=== PATIENT | male | born 1975 | race Caucasian/White ===

== ENCOUNTER 2024-07-30 18:40 | Inpatient (IN) | payer OTHER ==
[2024-07-30 18:45] LABS: Glucose,Whole Blood 600 mg/dL (70-110)
[2024-07-30 18:59] LABS: Glucose,Whole Blood 551 mg/dL (70-110)
[2024-07-30] MEDS: SODIUM CHLORIDE 0.9% 1,000 ML IV ONE (19:21)
--- NOTE | 2024-07-30 19:26 | ED ---
General Adult HPI - General Chief complaint: Recheck/Abnormal Lab/Rx Stated complaint: sugar over 500 Time Seen by Provider: 07/30/24 18:43 Source: patient, RN notes reviewed, old records reviewed Mode of arrival: ambulatory Limitations: no limitations - History of Present Illness Initial comments: 49-year-old male presenting for evaluation of elevated sugar. Patient does not have a diagnosis of diabetes. He felt that his sugar might be high and he bought a glucometer and had had several high readings today. He does report a 2-week history of increased thirst, and increased urination. He is felt somewhat fatigued. - Related Data Allergies Allergy/AdvReac Type Severity Reaction Status Date / Time No Known Allergies Allergy Verified 07/30/24 18:47 Review of Systems ROS Statement: Those systems with pertinent positive or pertinent negative responses have been documented in the HPI. ROS Other: All systems not noted in ROS Statement are negative. Past Medical History Additional Past Medical History / Comment(s): Pre-diabetic History of Any Multi-Drug Resistant Organisms: None Reported Past Surgical History: Ear Surgery Past Psychological History: No Psychological Hx Reported Smoking Status: Current every day smoker Past Alcohol Use History: None Reported Past Drug Use History: None Reported General Exam Limitations: no limitations General appearance: alert, in no apparent distress Head exam: Present: atraumatic, normocephalic Eye exam: Present: normal appearance, PERRL ENT exam: Present: mucous membranes dry Neck exam: Present: normal inspection. Absent: tenderness, meningismus Respiratory exam: Present: normal lung sounds bilaterally. Absent: respiratory distress, wheezes Cardiovascular Exam: Present: regular rate, normal rhythm GI/Abdominal exam: Present: soft. Absent: distended, guarding Neurological exam: Present: alert, oriented X3, CN II-XII intact. Absent: motor sensory deficit Psychiatric exam: Present: normal affect, normal mood Course Vital Signs 07/30/24 18:42 Temperature 98.5 F Pulse Rate 102 H Respiratory 18 Rate Blood Pressure 129/74 O2 Sat by Pulse 95 Oximetry Medical Decision Making - Medical Decision Making Was pt. sent in by a medical professional or institution (, PA, BUILDING DRAFTING OFFICER, urgent care, hospital, or [facility]...) When possible be specific @ -No Did you speak to anyone other than the patient for history (EMS, parent, family, police, friend...)? What history was obtained from this source @ -No Did you review nursing and triage notes (agree or disagree)? Why? @ -I reviewed and agree with nursing and triage notes Were old charts reviewed (outside hosp., previous admission, EMS record, old EKG, old radiological studies, urgent care reports/EKG's, [facility] records)? Report findings @ -No old charts were reviewed Differential: New onset diabetes, dehydration, diabetic ketoacidosis EKG interpreted by me (3pts min.). @ -[Sinus rhythm rate of 91 AL interval 179, QRS duration 101, QTc 388 X-rays interpreted by me (1pt min.). @ -None done CT interpreted by me (1pt min.). @ -None done U/S interpreted by me (1pt. min.). @ -None done What testing was considered but not performed or refused? (CT, X-rays, U/S, labs)? Why? @ -None What meds were considered but not given or refused? Why? @ -None Did you discuss the management of the patient with other professionals (professionals i.e. , PA, BUILDING DRAFTING OFFICER, lab, RT, psych nurse, manager social responsibility, tightening machine operator, teacher, assistant chief nursing officer, cyanide case hardener)? Give summary @ -[Case discussed with [facility], will admit. Dr. Min Was smoking cessation discussed for >3mins.? @ -No Was critical care preformed (if so, how long)? @ -Yes, 35 minutes Were there social determinants of health that impacted care today? How? (Homelessness, low income, unemployed, alcoholism, drug addiction, transportation, low edu. Level, literacy, decrease access to med. care, longterm, rehab)? @ -No Was there de-escalation of care discussed even if they declined (Discuss DNR or withdrawal of care, Hospice)? DNR status @ -No What co-morbidities impacted this encounter? (DM, HTN, Smoking, COPD, CAD, Cancer, CVA, ARF, Chemo, Hep., AIDS, mental health diagnosis, sleep apnea, morbid obesity)? @ -None Was patient admitted / discharged? Hospital course, mention meds given and route, prescriptions, significant lab abnormalities, going to OR and other pertinent info. @ -49-year-old male presenting with polydipsia, polyuria, elevated blood sugar. Patient has no prior diagnosis of diabetes. His blood sugar is 600. He is in DKA with an anion gap metabolic acidosis and ketones in the urine. Patient given IV fluid and started on insulin drip. Admitted for new onset diabetes with DKA. Undiagnosed new problem with uncertain prognosis? @ -No Drug Therapy requiring intensive monitoring for toxicity (Heparin, Nitro, Insulin, Cardizem)? @ -No Were any procedures done? @ -No Diagnosis/symptom? @ -New onset diabetes, DKA Acute, or Chronic, or Acute on Chronic? @ -Acute Uncomplicated (without systemic symptoms) or Complicated (systemic symptoms)? @ -[Complicated Side effects of treatment? @ -No Exacerbation, Progression, or Severe Exacerbation? @ -No Poses a threat to life or bodily function? How? (Chest pain, USA, SD, pneumonia, PE, COPD, DKA, ARF, appy, cholecystitis, CVA, Diverticulitis, Homicidal, Suicidal, threat to staff... and all critical care pts) @ -Yes, DKA - Lab Data Result diagrams: 07/30/24 19:08 07/30/24 19:08 Lab Results 07/30/24 07/30/24 07/30/24 Range/Units 18:43 18:58 19:08 WBC 5.83 (4.50-10.00) 10*3/uL RBC 4.37 L (4.40-5.60) 10*6/uL Hgb 15.4 (13.0-17.0) g/dL Hct 37.6 L (39.6-50.0) % MCV 86.0 (80.0-97.0) fL MCH 35.2 H (27.0-32.0) pg MCHC 41.0 H (32.0-37.0) g/dL Plt Count 229 (140-440) 10*3/uL MPV 10.4 (9.5-12.2) fL Immature Gran % (Auto) 0.9 % Neutrophils % 57.1 % Lymphocytes % 31.6 % Monocytes % 6.3 % Eosinophils % 2.7 % Basophils % 1.4 % Immature Gran # 0.05 H (0.00-0.04) 10*3/uL Neutrophils # 3.33 (1.80-7.70) 10*3/uL Lymphocytes # 1.84 (0.90-5.00) 10*3/uL Monocytes # 0.37 (0.20-1.00) 10*3/uL Eosinophils # 0.16 (0.04-0.35) 10*3/uL Basophils # 0.08 (0.00-0.10) 10*3/uL VBG pH (7.31-7.41) VBG pCO2 (37-51) mmHg VBG HCO3 (24-28) mmol/L Sodium (137-145) mmol/L Potassium (3.5-5.1) mmol/L Chloride (98-107) mmol/L Carbon Dioxide (22-30) mmol/L Anion Gap mmol/L BUN (9-20) mg/dL Creatinine (0.66-1.25) mg/dL Est GFR (CKD-EPI)AfAm (>60 ml/min/1.73 sqM) Est GFR (CKD-EPI)NonAf (>60 ml/min/1.73 sqM) Glucose (74-99) mg/dL POC Glucose (mg/dL) 600 H* 551 H* (70-110) mg/dL POC Glu Piece Dyer ID Altimore Gianna Altimore Gianna Plasma Lactic Acid Russell (0.7-2.0) mmol/L Calcium (8.4-10.2) mg/dL Total Bilirubin (0.2-1.3) mg/dL AST (17-59) U/L ALT (4-49) U/L Alkaline Phosphatase (38-126) U/L Total Protein (6.3-8.2) g/dL Albumin (3.5-5.0) g/dL Urine Color Urine Appearance (Clear) Urine pH (5.0-8.0) Ur Specific [place] (1.001-1.035) Urine Protein (Negative) Urine Glucose (UA) (Negative) Urine Ketones (Negative) Urine Blood (Negative) Urine Nitrite (Negative) Urine Bilirubin (Negative) Urine Urobilinogen (<2.0) mg/dL Ur Leukocyte Esterase (Negative) Urine RBC (0-5) /hpf Urine WBC (0-5) /hpf Ur Squamous Epith Cells (0-4) /hpf Acetone, Qual (Negative) 07/30/24 07/30/24 07/30/24 Range/Units 19:08 19:08 19:08 WBC (4.50-10.00) 10*3/uL RBC (4.40-5.60) 10*6/uL Hgb (13.0-17.0) g/dL Hct (39.6-50.0) % MCV (80.0-97.0) fL MCH (27.0-32.0) pg MCHC (32.0-37.0) g/dL Plt Count (140-440) 10*3/uL MPV (9.5-12.2) fL Immature Gran % (Auto) % Neutrophils % % Lymphocytes % % Monocytes % % Eosinophils % % Basophils % % Immature Gran # (0.00-0.04) 10*3/uL Neutrophils # (1.80-7.70) 10*3/uL Lymphocytes # (0.90-5.00) 10*3/uL Monocytes # (0.20-1.00) 10*3/uL Eosinophils # (0.04-0.35) 10*3/uL Basophils # (0.00-0.10) 10*3/uL VBG pH (7.31-7.41) VBG pCO2 (37-51) mmHg VBG HCO3 (24-28) mmol/L Sodium 126 L (137-145) mmol/L Potassium 4.7 (3.5-5.1) mmol/L Chloride 93 L (98-107) mmol/L Carbon Dioxide 13 L (22-30) mmol/L Anion Gap 20 mmol/L BUN 18 (9-20) mg/dL Creatinine 0.62 L (0.66-1.25) mg/dL Est GFR (CKD-EPI)AfAm >90 (>60 ml/min/1.73 sqM) Est GFR (CKD-EPI)NonAf >90 (>60 ml/min/1.73 sqM) Glucose 526 H* (74-99) mg/dL POC Glucose (mg/dL) (70-110) mg/dL POC Glu Piece Dyer ID Plasma Lactic Acid Russell 1.1 (0.7-2.0) mmol/L Calcium 9.4 (8.4-10.2) mg/dL Total Bilirubin 1.1 (0.2-1.3) mg/dL AST 28 (17-59) U/L ALT 31 (4-49) U/L Alkaline Phosphatase 81 (38-126) U/L Total Protein 7.6 (6.3-8.2) g/dL Albumin 4.3 (3.5-5.0) g/dL Urine Color Colorless Urine Appearance Clear (Clear) Urine pH 5.0 (5.0-8.0) Ur Specific [place] 1.030 (1.001-1.035) Urine Protein Negative (Negative) Urine Glucose (UA) 4+ H (Negative) Urine Ketones 2+ H (Negative) Urine Blood Trace H (Negative) Urine Nitrite Negative (Negative) Urine Bilirubin Negative (Negative) Urine Urobilinogen <2.0 (<2.0) mg/dL Ur Leukocyte Esterase Negative (Negative) Urine RBC 1 (0-5) /hpf Urine WBC <1 (0-5) /hpf Ur Squamous Epith Cells <1 (0-4) /hpf Acetone, Qual Negative (Negative) 07/30/24 Range/Units 19:08 WBC (4.50-10.00) 10*3/uL RBC (4.40-5.60) 10*6/uL Hgb (13.0-17.0) g/dL Hct (39.6-50.0) % MCV (80.0-97.0) fL MCH (27.0-32.0) pg MCHC (32.0-37.0) g/dL Plt Count (140-440) 10*3/uL MPV (9.5-12.2) fL Immature Gran % (Auto) % Neutrophils % % Lymphocytes % % Monocytes % % Eosinophils % % Basophils % % Immature Gran # (0.00-0.04) 10*3/uL Neutrophils # (1.80-7.70) 10*3/uL Lymphocytes # (0.90-5.00) 10*3/uL Monocytes # (0.20-1.00) 10*3/uL Eosinophils # (0.04-0.35) 10*3/uL Basophils # (0.00-0.10) 10*3/uL VBG pH 7.39 (7.31-7.41) VBG pCO2 33 L (37-51) mmHg VBG HCO3 20 L (24-28) mmol/L Sodium (137-145) mmol/L Potassium (3.5-5.1) mmol/L Chloride (98-107) mmol/L Carbon Dioxide (22-30) mmol/L Anion Gap mmol/L BUN (9-20) mg/dL Creatinine (0.66-1.25) mg/dL Est GFR (CKD-EPI)AfAm (>60 ml/min/1.73 sqM) Est GFR (CKD-EPI)NonAf (>60 ml/min/1.73 sqM) Glucose (74-99) mg/dL POC Glucose (mg/dL) (70-110) mg/dL POC Glu Piece Dyer ID Plasma Lactic Acid Russell (0.7-2.0) mmol/L Calcium (8.4-10.2) mg/dL Total Bilirubin (0.2-1.3) mg/dL AST (17-59) U/L ALT (4-49) U/L Alkaline Phosphatase (38-126) U/L Total Protein (6.3-8.2) g/dL Albumin (3.5-5.0) g/dL Urine Color Urine Appearance (Clear) Urine pH (5.0-8.0) Ur Specific [place] (1.001-1.035) Urine Protein (Negative) Urine Glucose (UA) (Negative) Urine Ketones (Negative) Urine Blood (Negative) Urine Nitrite (Negative) Urine Bilirubin (Negative) Urine Urobilinogen (<2.0) mg/dL Ur Leukocyte Esterase (Negative) Urine RBC (0-5) /hpf Urine WBC (0-5) /hpf Ur Squamous Epith Cells (0-4) /hpf Acetone, Qual (Negative) Critical Care Time Critical Care Time: Yes Total Critical Care Time: 35 Disposition Clinical Impression: Diabetes mellitus, new onset, DKA (diabetic ketoacidosis) Disposition: ADMITTED IP TO THIS [facility] Condition: Stable Is patient prescribed a controlled substance at d/c from ED?: No Referrals: None,Stated [Primary Care Provider] - 1-2 days Time of Disposition: 20:32
[2024-07-30] MEDS ORDERED: SODIUM CHLORIDE 0.9% 1,000 ML IV SCH (19:30)
[2024-07-30] MEDS: SODIUM CHLORIDE 0.9% 2,000 ML IV ONE (19:45)
[2024-07-30 19:49] LABS: Appearance,Urine Clear (Clear); Bilirubin,Urine Negative (Negative); Blood,Urine Trace (Negative); Color,Urine Colorless; Glucose,Urine (UA) 4+ (Negative); Leukocyte Esterase,Urine Negative (Negative); Nitrite,Urine Negative (Negative); Protein,Urine Negative (Negative); RBC,Urine 1 /hpf (0-5); Squamous Epithelial Cell,Urine <1 /hpf (0-4); Urobilinogen,Urine <2.0 mg/dL (<2.0); VBG PH 7.39 (7.31-7.41); WBC,Urine <1 /hpf (0-5)
[2024-07-30 20:02] LABS: ALT 31 U/L (4-49); AST 28 U/L (17-59); African American GFR (CKD) >90 (>60 ml/min/1.73 sqM); Albumin 4.3 g/dL (3.5-5.0); Alkaline Phosphatase 81 U/L (38-126); Anion Gap 20 mmol/L; Blood Urea Nitrogen 18 mg/dL (9-20); Calcium 9.4 mg/dL (8.4-10.2); Carbon Dioxide 13 mmol/L (22-30); Chloride 93 mmol/L (98-107); Non-African American GFR(CKD) >90 (>60 ml/min/1.73 sqM); Potassium 4.7 mmol/L (3.5-5.1); Sodium 126 mmol/L (137-145); Total Bilirubin 1.1 mg/dL (0.2-1.3); Total Protein 7.6 g/dL (6.3-8.2)
[2024-07-30 20:03] LABS: Ketones,Urine 2+ (Negative)
[2024-07-30 20:05] LABS: Basophils # (A) 0.08 10*3/uL (0.00-0.10); Basophils % (A) 1.4 %; Eosinophils # (A) 0.16 10*3/uL (0.04-0.35); Eosinophils % (A) 2.7 %; HCT 37.6 % (39.6-50.0); HGB 15.4 g/dL (13.0-17.0); Lymphocytes # (A) 1.84 10*3/uL (0.90-5.00); Lymphocytes % (A) 31.6 %; MCH 35.2 pg (27.0-32.0); Mean Platelet Volume 10.4 fL (9.5-12.2); Monocytes # (A) 0.37 10*3/uL (0.20-1.00); Monocytes % (A) 6.3 %; Neutrophils # (A) 3.33 10*3/uL (1.80-7.70); Neutrophils % (A) 57.1 %; Platelet Count 229 10*3/uL (140-440); RBC 4.37 10*6/uL (4.40-5.60); RDW 12.6 % (11.5-14.5); WBC 5.83 10*3/uL (4.50-10.00)
[2024-07-30 20:06] LABS: Glucose 526 mg/dL (74-99)
[2024-07-30 20:32] LABS: Glucose,Whole Blood 470 mg/dL (70-110)
[2024-07-30] MEDS: SODIUM CHLORIDE 0.9% 1,000 ML IV SCH (21:15)
[2024-07-30] MEDS: INSULIN REGULAR 100 UNIT in SODIUM CHLORIDE 0.9% 100 ML IV SCH (21:16)
[2024-07-30 21:20] LABS: Glucose,Whole Blood 448 mg/dL (70-110)
[2024-07-30 23:09] LABS: Glucose,Whole Blood 377 mg/dL (70-110)
[2024-07-30 23:54] LABS: Glucose,Whole Blood 358 mg/dL (70-110)
[2024-07-31 00:53] LABS: African American GFR (CKD) >90 (>60 ml/min/1.73 sqM); Anion Gap 13 mmol/L; Blood Urea Nitrogen 16 mg/dL (9-20); Carbon Dioxide 16 mmol/L (22-30); Chloride 101 mmol/L (98-107); Glucose 315 mg/dL (74-99); Non-African American GFR(CKD) >90 (>60 ml/min/1.73 sqM); Sodium 130 mmol/L (137-145)
[2024-07-31 01:04] LABS: Glucose,Whole Blood 271 mg/dL (70-110)
[2024-07-31 02:15] LABS: Glucose,Whole Blood 208 mg/dL (70-110)
[2024-07-31 03:07] LABS: Glucose,Whole Blood 166 mg/dL (70-110)
[2024-07-31 04:02] LABS: Glucose,Whole Blood 152 mg/dL (70-110)
[2024-07-31 04:53] LABS: Glucose,Whole Blood 132 mg/dL (70-110)
[2024-07-31 06:01] LABS: Glucose,Whole Blood 133 mg/dL (70-110)
[2024-07-31 06:47] LABS: African American GFR (CKD) >90 (>60 ml/min/1.73 sqM); Anion Gap 10 mmol/L; Blood Urea Nitrogen 15 mg/dL (9-20); Carbon Dioxide 19 mmol/L (22-30); Chloride 103 mmol/L (98-107); Glucose 105 mg/dL (74-99); Non-African American GFR(CKD) >90 (>60 ml/min/1.73 sqM); Sodium 132 mmol/L (137-145)
[2024-07-31 06:48] LABS: Potassium 3.6 mmol/L (3.5-5.1)
[2024-07-31 06:55] LABS: Glucose,Whole Blood 124 mg/dL (70-110)
[2024-07-31 08:16] LABS: Glucose,Whole Blood 128 mg/dL (70-110)
[2024-07-31] MEDS ORDERED: DEXTROSE 50% SYRINGE 50 ML IVP PRN ×2 (08:33)
[2024-07-31 09:09] LABS: Glucose,Whole Blood 172 mg/dL (70-110)
[2024-07-31 09:31] LABS: African American GFR (CKD) >90 (>60 ml/min/1.73 sqM); Anion Gap 9 mmol/L; Blood Urea Nitrogen 13 mg/dL (9-20); Calcium 7.8 mg/dL (8.4-10.2); Carbon Dioxide 19 mmol/L (22-30); Chloride 104 mmol/L (98-107); Glucose 130 mg/dL (74-99); Non-African American GFR(CKD) >90 (>60 ml/min/1.73 sqM); Sodium 132 mmol/L (137-145)
[2024-07-31 09:38] LABS: Potassium 3.5 mmol/L (3.5-5.1)
[2024-07-31] MEDS: POTASSIUM CHLORIDE ER 20 MEQ TAB.ER PO STA (10:03)
[2024-07-31] MEDS: INSULIN GLARGINE (LANTUS) 100 UNIT/ML SYR SQ SCH ×3 (10:03→21:53)
[2024-07-31 10:04] LABS: Glucose,Whole Blood 299 mg/dL (70-110)
[2024-07-31] MEDS: D5-0.45% NACL WITH KCL 20MEQ/L 1,000 ML IV SCH (10:25)
[2024-07-31 11:20] LABS: Glucose,Whole Blood 342 mg/dL (70-110)
[2024-07-31 11:52] VITALS: BMI 38.0
[2024-07-31 12:29] LABS: Glucose,Whole Blood 355 mg/dL (70-110)
[2024-07-31] MEDS: INSULIN LISPRO (HumaLOG) 100 UNIT/ML 10 mL VL SQ SCH (12:42)
[2024-07-31] MEDS ORDERED: Potassium Replacement Protocol 1 EACH MISC MISCELLANE PRN (14:50)
--- NOTE | 2024-07-31 15:12 | P.HPIM ---
History of Present Illness H&P Date: 07/31/24 History of present illness; Patient has 49-year-old male with no known medical history who presents for hyperglycemia. He has no known history of diabetes. He does report a 2-week history of increased thirst, and increased urination. He is felt somewhat fatigued. He felt that his sugar might be high and he bought a glucometer and had had several high readings yesterday, including readings up to 425. He has no other complaints at this time. Spoke with the ER physician, patient admission was accepted by internal medicine service for treatment. REVIEW OF SYSTEMS: Pertinent positives and negatives noted in HPI. PHYSICAL EXAMINATION: Vitals reviewed GENERAL: Resting comfortably in bed. Obese. EYES: PERRL, no scleral injection or icterus. No vision loss HENT: Normocephalic, atraumatic, hearing grossly intact, moist mucous membranes NECK: No tracheal deviation, full range of motion. CARDIOVASCULAR: S1 and S2 present. No murmurs, rubs, or gallops. PULMONARY: Chest is clear to auscultation, no wheezing, rhonchi, or crackles. ABDOMEN: Soft, nontender, nondistended. No palpable organomegaly. MUSCULOSKELETAL: No apparent joint swelling and deformities. EXTREMITIES: No apparent cyanosis, clubbing. No pedal edema. NEUROLOGICAL: Alert and oriented. Gross neurological examination with no apparent focal deficits. SKIN: No apparent rashes. ER FINDINGS: Labs significant for hemoglobin 15.4, VBG 7.39, pCO2 33. Sodium 126, chloride 93, bicarb 13, creatinine 0.62, glucose of 526 EKG independently interpreted showed sinus rhythm heart rate of 91, QTc 388, no ST segment elevation or depression seen, no T-wave inversions seen. Assessment and Plan: In summary, patient has 49-year-old male with no known medical history who presents for hyperglycemia. #[facility] #Uncontrolled hyperglycemia #Diabetes mellitus, type II #Pseudohyponatremia - Blood glucose elevated initial 526, bicarb low 13 Given 3L NS in ER Continue IV NS at 50 mL/h Potassium replacement per protocol Discontinue insulin GGT Begin daily Lantus 15 units Begin Accu-Cheks ACHS, monitor for hypoglycemia HbA1c pending Chronic Medical Conditions No known medical history DVT ppx: Subq Lovenox 40 meq daily Code status: Full code F: IV Normal saline E: Replete as needed N: Consistent carb diet A: Ambulatory Anticipated discharge place: Home Anticipated discharge time: Tomorrow Dr. Roland seen patient with resident, present during exam, and agreed with findings. Dictation was produced using [employer] dictation software. Please excuse any grammatical, word or spelling errors. Past Medical History Additional Past Medical History / Comment(s): Pre-diabetic History of Any Multi-Drug Resistant Organisms: None Reported Past Surgical History: Ear Surgery Past Psychological History: No Psychological Hx Reported Smoking Status: Current every day smoker Past Alcohol Use History: None Reported Past Drug Use History: None Reported Medications and Allergies Home Medications Medication Instructions Recorded Confirmed Type Multivitamins, Thera [Multivitamin 1 tab PO DAILY 07/31/24 07/31/24 History (formulary)] Vitamin D3/Vitamin K2 (Mk4) 1 tab PO DAILY 07/31/24 07/31/24 History [Vitamin K2 Plus D3 Tablet] Allergies Allergy/AdvReac Type Severity Reaction Status Date / Time No Known Allergies Allergy Verified 07/31/24 08:29 Physical Exam Vitals: Vital Signs Temp Pulse Pulse Resp BP BP Pulse Ox 07/31/24 08:05 97.5 F L 69 17 120/75 96 07/31/24 04:00 98.1 F 71 17 120/74 96 07/31/24 01:44 96 17 07/31/24 00:00 97.8 F 102 H 17 155/95 96 07/30/24 22:16 98.0 F 79 17 143/79 98 07/30/24 21:13 90 18 146/86 98 07/30/24 18:42 98.5 F 102 H 18 129/74 95 Intake and Output 07/30/24 07/31/24 07/31/24 22:59 06:59 14:59 Intake Total 121.151 4.542 Balance 121.151 4.542 Intake: Intake, IV Titration 121.151 4.542 Amount Insulin Regular 100 unit 121.151 4.542 In Sodium Chloride 0.9% 100 ml @ 0.1 UNITS/KG/HR 12.159 mls/hr IV .[id number] [facility] Rx#:[id number] Other: Voiding Method Toilet # Voids 2 Weight 120.383 kg 120.3 kg Results CBC & Chem 7: 07/30/24 19:08 07/31/24 08:43 Labs: Abnormal Lab Results - Last 24 Hours (Table) 07/30/24 07/30/24 07/30/24 Range/Units 18:43 18:58 19:08 RBC 4.37 L (4.40-5.60) 10*6/uL Hct 37.6 L (39.6-50.0) % MCH 35.2 H (27.0-32.0) pg MCHC 41.0 H (32.0-37.0) g/dL Immature Gran # 0.05 H (0.00-0.04) 10*3/uL VBG pCO2 (37-51) mmHg VBG HCO3 (24-28) mmol/L Sodium (137-145) mmol/L Chloride (98-107) mmol/L Carbon Dioxide (22-30) mmol/L Creatinine (0.66-1.25) mg/dL Glucose (74-99) mg/dL POC Glucose (mg/dL) 600 H* 551 H* (70-110) mg/dL Urine Glucose (UA) (Negative) Urine Ketones (Negative) Urine Blood (Negative) 07/30/24 07/30/24 07/30/24 Range/Units 19:08 19:08 19:08 RBC (4.40-5.60) 10*6/uL Hct (39.6-50.0) % MCH (27.0-32.0) pg MCHC (32.0-37.0) g/dL Immature Gran # (0.00-0.04) 10*3/uL VBG pCO2 33 L (37-51) mmHg VBG HCO3 20 L (24-28) mmol/L Sodium 126 L (137-145) mmol/L Chloride 93 L (98-107) mmol/L Carbon Dioxide 13 L (22-30) mmol/L Creatinine 0.62 L (0.66-1.25) mg/dL Glucose 526 H* (74-99) mg/dL POC Glucose (mg/dL) (70-110) mg/dL Urine Glucose (UA) 4+ H (Negative) Urine Ketones 2+ H (Negative) Urine Blood Trace H (Negative) 07/30/24 07/30/24 07/30/24 Range/Units 20:30 21:12 23:07 RBC (4.40-5.60) 10*6/uL Hct (39.6-50.0) % MCH (27.0-32.0) pg MCHC (32.0-37.0) g/dL Immature Gran # (0.00-0.04) 10*3/uL VBG pCO2 (37-51) mmHg VBG HCO3 (24-28) mmol/L Sodium (137-145) mmol/L Chloride (98-107) mmol/L Carbon Dioxide (22-30) mmol/L Creatinine (0.66-1.25) mg/dL Glucose (74-99) mg/dL POC Glucose (mg/dL) 470 H 448 H 377 H (70-110) mg/dL Urine Glucose (UA) (Negative) Urine Ketones (Negative) Urine Blood (Negative) 07/30/24 07/31/24 07/31/24 Range/Units 23:52 00:09 01:02 RBC (4.40-5.60) 10*6/uL Hct (39.6-50.0) % MCH (27.0-32.0) pg MCHC (32.0-37.0) g/dL Immature Gran # (0.00-0.04) 10*3/uL VBG pCO2 (37-51) mmHg VBG HCO3 (24-28) mmol/L Sodium 130 L (137-145) mmol/L Chloride (98-107) mmol/L Carbon Dioxide 16 L (22-30) mmol/L Creatinine 0.56 L (0.66-1.25) mg/dL Glucose 315 H (74-99) mg/dL POC Glucose (mg/dL) 358 H 271 H (70-110) mg/dL Urine Glucose (UA) (Negative) Urine Ketones (Negative) Urine Blood (Negative) 07/31/24 07/31/24 07/31/24 Range/Units 02:14 03:04 04:00 RBC (4.40-5.60) 10*6/uL Hct (39.6-50.0) % MCH (27.0-32.0) pg MCHC (32.0-37.0) g/dL Immature Gran # (0.00-0.04) 10*3/uL VBG pCO2 (37-51) mmHg VBG HCO3 (24-28) mmol/L Sodium (137-145) mmol/L Chloride (98-107) mmol/L Carbon Dioxide (22-30) mmol/L Creatinine (0.66-1.25) mg/dL Glucose (74-99) mg/dL POC Glucose (mg/dL) 208 H 166 H 152 H (70-110) mg/dL Urine Glucose (UA) (Negative) Urine Ketones (Negative) Urine Blood (Negative) 07/31/24 07/31/24 07/31/24 Range/Units 04:51 05:12 05:59 RBC (4.40-5.60) 10*6/uL Hct (39.6-50.0) % MCH (27.0-32.0) pg MCHC (32.0-37.0) g/dL Immature Gran # (0.00-0.04) 10*3/uL VBG pCO2 (37-51) mmHg VBG HCO3 (24-28) mmol/L Sodium 132 L (137-145) mmol/L Chloride (98-107) mmol/L Carbon Dioxide 19 L (22-30) mmol/L Creatinine 0.59 L (0.66-1.25) mg/dL Glucose 105 H (74-99) mg/dL POC Glucose (mg/dL) 132 H 133 H (70-110) mg/dL Urine Glucose (UA) (Negative) Urine Ketones (Negative) Urine Blood (Negative) 07/31/24 07/31/24 Range/Units 06:53 08:12 RBC (4.40-5.60) 10*6/uL Hct (39.6-50.0) % MCH (27.0-32.0) pg MCHC (32.0-37.0) g/dL Immature Gran # (0.00-0.04) 10*3/uL VBG pCO2 (37-51) mmHg VBG HCO3 (24-28) mmol/L Sodium (137-145) mmol/L Chloride (98-107) mmol/L Carbon Dioxide (22-30) mmol/L Creatinine (0.66-1.25) mg/dL Glucose (74-99) mg/dL POC Glucose (mg/dL) 124 H 128 H (70-110) mg/dL Urine Glucose (UA) (Negative) Urine Ketones (Negative) Urine Blood (Negative) Thrombosis Risk Factor Assmnt - Choose All That Apply Any of the Below Risk Factors Present?: Yes Each Factor Represents 1 point: Age 41-60 years Other Risk Factors: No Other congenital or acquired thrombophilia - If yes, enter type in comment: No Thrombosis Risk Factor Assessment Total Risk Factor Score: 1 Thrombosis Risk Factor Assessment Level: Low Risk
[2024-07-31 16:23] LABS: Glucose,Whole Blood 326 mg/dL (70-110)
[2024-07-31 16:40] LABS: African American GFR (CKD) >90 (>60 ml/min/1.73 sqM); Anion Gap 12 mmol/L; Blood Urea Nitrogen 11 mg/dL (9-20); Calcium 8.7 mg/dL (8.4-10.2); Carbon Dioxide 17 mmol/L (22-30); Chloride 102 mmol/L (98-107); Glucose 278 mg/dL (74-99); Magnesium 1.7 mg/dL (1.6-2.3); Non-African American GFR(CKD) >90 (>60 ml/min/1.73 sqM); Potassium 4.5 mmol/L (3.5-5.1); Sodium 131 mmol/L (137-145)
[2024-07-31 19:54] LABS: Glucose,Whole Blood 304 mg/dL (70-110)
[2024-08-01 06:06] LABS: Glucose,Whole Blood 369 mg/dL (70-110)
[2024-08-01 06:56] LABS: African American GFR (CKD) >90 (>60 ml/min/1.73 sqM); Anion Gap 15 mmol/L; Blood Urea Nitrogen 11 mg/dL (9-20); Calcium 8.7 mg/dL (8.4-10.2); Carbon Dioxide 16 mmol/L (22-30); Chloride 97 mmol/L (98-107); Glucose 346 mg/dL (74-99); Non-African American GFR(CKD) >90 (>60 ml/min/1.73 sqM); Potassium 4.6 mmol/L (3.5-5.1); Sodium 128 mmol/L (137-145)
[2024-08-01] MEDS: ENOXAPARIN 40 MG/0.4 ML SYRINGE SQ SCH (08:14)
[2024-08-01 12:09] LABS: Glucose,Whole Blood 409 mg/dL (70-110)
--- NOTE | 2024-08-01 14:58 | P.PN ---
Subjective Progress Note Date: 08/01/24 History of present illness; Patient has 49-year-old male with no known medical history who presents for hyp erglycemia. He has no known history of diabetes. He does report a 2-week history of increased thirst, and increased urination. He is felt somewhat fatigued. He felt that his sugar might be high and he bought a glucometer and had had several high readings yesterday, including readings up to 425. He has no other complaints at this time. 08/01/2024 Patient seen and examined at bedside. He continues to have elevated blood sugars. He is eager to be discharged. Continues to have polydipsia and polyuria. No nausea or vomiting. REVIEW OF SYSTEMS: Pertinent positives and negatives noted in HPI. PHYSICAL EXAMINATION: Vitals reviewed GENERAL: Resting comfortably in bed. Obese. EYES: PERRL, no scleral injection or icterus. No vision loss HENT: Normocephalic, atraumatic, hearing grossly intact, moist mucous membranes NECK: No tracheal deviation, full range of motion. CARDIOVASCULAR: S1 and S2 present. No murmurs, rubs, or gallops. PULMONARY: Chest is clear to auscultation, no wheezing, rhonchi, or crackles. ABDOMEN: Soft, nontender, nondistended. No palpable organomegaly. MUSCULOSKELETAL: No apparent joint swelling and deformities. EXTREMITIES: No apparent cyanosis, clubbing. No pedal edema. NEUROLOGICAL: Alert and oriented. Gross neurological examination with no apparen t focal deficits. SKIN: No apparent rashes. Objective FINDINGS: Labs significant for sodium 128, chloride 97, bicarb 16, creatinine 0.56, glucose ranging from 355-409 Assessment and Plan: In summary, patient has 49-year-old male with no known medical history who presents for hyperglycemia. #[facility] #Uncontrolled hyperglycemia #Diabetes mellitus, type II #Pseudohyponatremia - Blood glucose elevated initial 526, bicarb low 13 Given 3L NS in ER Potassium replacement per protocol Begin daily Lantus 18 units twice daily Begin preprandial lispro 8 units 3 times daily Begin Accu-Cheks ACHS, monitor for hypoglycemia HbA1c 12.6% Plan discharge when blood glucose <250 Chronic Medical Conditions No known medical history DVT ppx: Subq Lovenox 40 meq daily Code status: Full code F: P.o. E: Replete as needed N: Consistent carb diet A: Ambulatory Anticipated discharge place: Home Anticipated discharge time: Today or tomorrow Dr. Phelps seen patient with resident, present during exam, and agreed with findings. Dictation was produced using [employer]ever dictation software. Please excuse any grammatical, word or spelling errors. Objective - Vital Signs Vital signs: Vital Signs Temp 97.8 F 08/01/24 08:00 Pulse 81 08/01/24 08:00 Resp 18 08/01/24 08:00 BP 126/79 08/01/24 08:00 Pulse Ox 98 08/01/24 08:00 FiO2 Intake & Output 07/31/24 08/01/24 08/01/24 18:59 06:59 18:59 Intake Total 726.224 740 480 Balance 726.224 740 480 Weight 120.3 kg 120.4 kg Intake: Intake, IV Titration 6.224 Amount Insulin Regular 100 unit 6.224 In Sodium Chloride 0.9% 100 ml @ 0.1 UNITS/KG/HR 12.159 mls/hr IV .Q8H19M [facility] Rx#:[id number] Oral 720 740 480 Other: Voiding Method Toilet Toilet # Voids 1 - Labs CBC & Chem 7: 07/30/24 19:08 08/01/24 05:29 Labs: Abnormal Lab Results - Last 24 Hours (Table) 07/31/24 07/31/24 07/31/24 Range/Units 08:43 08:43 09:07 Sodium 132 L (137-145) mmol/L Chloride (98-107) mmol/L Carbon Dioxide 19 L (22-30) mmol/L Creatinine 0.56 L (0.66-1.25) mg/dL Glucose 130 H (74-99) mg/dL POC Glucose (mg/dL) 172 H (70-110) mg/dL Hemoglobin A1c 12.6 H (<=6.0) % Calcium 7.8 L (8.4-10.2) mg/dL 07/31/24 07/31/24 07/31/24 Range/Units 10:02 11:13 12:28 Sodium (137-145) mmol/L Chloride (98-107) mmol/L Carbon Dioxide (22-30) mmol/L Creatinine (0.66-1.25) mg/dL Glucose (74-99) mg/dL POC Glucose (mg/dL) 299 H 342 H 355 H (70-110) mg/dL Hemoglobin A1c (<=6.0) % Calcium (8.4-10.2) mg/dL 07/31/24 07/31/24 07/31/24 Range/Units 15:55 16:21 19:53 Sodium 131 L (137-145) mmol/L Chloride (98-107) mmol/L Carbon Dioxide 17 L (22-30) mmol/L Creatinine 0.56 L (0.66-1.25) mg/dL Glucose 278 H (74-99) mg/dL POC Glucose (mg/dL) 326 H 304 H (70-110) mg/dL Hemoglobin A1c (<=6.0) % Calcium (8.4-10.2) mg/dL 08/01/24 08/01/24 Range/Units 05:29 06:05 Sodium 128 L (137-145) mmol/L Chloride 97 L (98-107) mmol/L Carbon Dioxide 16 L (22-30) mmol/L Creatinine 0.56 L (0.66-1.25) mg/dL Glucose 346 H (74-99) mg/dL POC Glucose (mg/dL) 369 H (70-110) mg/dL Hemoglobin A1c (<=6.0) % Calcium (8.4-10.2) mg/dL
[2024-08-01 16:59] LABS: Glucose,Whole Blood 324 mg/dL (70-110)
[2024-08-01] MEDS: INSULIN LISPRO (HumaLOG) 100 UNIT/ML 10 mL VL SQ SCH (17:11)
[2024-08-01 20:09] LABS: Glucose,Whole Blood 325 mg/dL (70-110)
[2024-08-02 05:59] LABS: Glucose,Whole Blood 334 mg/dL (70-110)
[2024-08-02 08:05] LABS: African American GFR (CKD) >90 (>60 ml/min/1.73 sqM); Anion Gap 11 mmol/L; Blood Urea Nitrogen 11 mg/dL (9-20); Calcium 8.9 mg/dL (8.4-10.2); Carbon Dioxide 20 mmol/L (22-30); Chloride 100 mmol/L (98-107); Glucose 329 mg/dL (74-99); Non-African American GFR(CKD) >90 (>60 ml/min/1.73 sqM); Potassium 4.1 mmol/L (3.5-5.1); Sodium 131 mmol/L (137-145)
[2024-08-02 11:43] LABS: Glucose,Whole Blood 324 mg/dL (70-110)
[2024-08-02] MEDS: INSULIN LISPRO (HumaLOG) 100 UNIT/ML 10 mL VL SQ SCH (12:16)
[2024-08-02 14:53] LABS: Glucose,Whole Blood 409 mg/dL (70-110)
[2024-08-02 17:07] LABS: Glucose,Whole Blood 322 mg/dL (70-110)
[2024-08-02 20:14] LABS: Glucose,Whole Blood 297 mg/dL (70-110)
--- NOTE | 2024-08-02 22:00 | P.PN ---
Subjective Progress Note Date: 08/02/24 Patient has 49-year-old male with no known medical history who presents for hyperglycemia. He has no known history of diabetes. He does report a 2-week history of increased thirst, and increased urination. He is felt somewhat fatigued. He felt that his sugar might be high and he bought a glucometer and had had several high readings yesterday, including readings up to 425. He has no other complaints at this time. 08/01/2024 Patient seen and examined at bedside. He continues to have elevated blood sugars. He is eager to be discharged. Continues to have polydipsia and polyuria. No nausea or vomiting. 08/02/2024 Patient is awake alert and oriented x 3. No complaints of chest pain or shortne ss of breath. Able to ambulate in the room. However his blood sugar is still in the 400s. Preprandial dose increased to 12 units 3 times daily AC. Laboratory data showed sodium 131 potassium 4.1 chloride 100 bicarb is 20 BUN 11 and creatinine 0.58 and blood sugar 329. REVIEW OF SYSTEMS: Pertinent positives and negatives noted in HPI. PHYSICAL EXAMINATION: Vitals reviewed GENERAL: Resting comfortably in bed. Obese. EYES: PERRL, no scleral injection or icterus. No vision loss HENT: Normocephalic, atraumatic, hearing grossly intact, moist mucous membranes NECK: No tracheal deviation, full range of motion. CARDIOVASCULAR: S1 and S2 present. No murmurs, rubs, or gallops. PULMONARY: Chest is clear to auscultation, no wheezing, rhonchi, or crackles. ABDOMEN: Soft, nontender, nondistended. No palpable organomegaly. MUSCULOSKELETAL: No apparent joint swelling and deformities. EXTREMITIES: No apparent cyanosis, clubbing. No pedal edema. NEUROLOGICAL: Alert and oriented. Gross neurological examination with no apparent focal deficits. SKIN: No apparent rashes. Objective FINDINGS: Labs significant for sodium 128, chloride 97, bicarb 16, creatinine 0.56, glucose ranging from 355-409 Assessment and Plan: In summary, patient has 49-year-old male with no known medical history who presents for hyperglycemia. #HHS #Uncontrolled hyperglycemia #Diabetes mellitus, type II #Pseudohyponatremia - Blood glucose elevated initial 526, bicarb low 13 Given 3L NS in ER Potassium replacement per protocol Continue with Lantus 18 units twice daily Increase preprandial lispro 8 units 3 times daily to 12 units 3 times daily AC Continue Accu-Cheks ACHS, monitor for hypoglycemia HbA1c 12.6% Plan discharge when blood glucose <250 Chronic Medical Conditions No known medical history DVT ppx: Subq Lovenox 40 meq daily Code status: Full code F: P.o. E: Replete as needed N: Consistent carb diet A: Ambulatory Anticipated discharge place: Home Anticipated discharge time: Today or tomorrow Objective - Vital Signs Vital signs: Vital Signs Temp 97.7 F 08/02/24 15:11 Pulse 69 08/02/24 20:00 Resp 18 08/02/24 20:00 BP 117/69 08/02/24 20:00 Pulse Ox 98 08/02/24 20:00 FiO2 Intake & Output 08/02/24 08/02/24 08/03/24 06:59 18:59 06:59 Intake Total 10 1220 10 Balance 10 1220 10 Weight 119.3 kg Intake: IV 20 10 Invasive Line 1 20 10 Oral 10 1200 Other: Voiding Method Toilet Toilet Toilet # Voids 5 - Labs CBC & Chem 7: 07/30/24 19:08 08/02/24 06:05 Labs: Abnormal Lab Results - Last 24 Hours (Table) 08/02/24 08/02/24 08/02/24 Range/Units 05:56 06:05 11:40 Sodium 131 L (137-145) mmol/L Carbon Dioxide 20 L (22-30) mmol/L Creatinine 0.58 L (0.66-1.25) mg/dL Glucose 329 H (74-99) mg/dL POC Glucose (mg/dL) 334 H 324 H (70-110) mg/dL 08/02/24 08/02/24 08/02/24 Range/Units 14:52 17:01 20:12 Sodium (137-145) mmol/L Carbon Dioxide (22-30) mmol/L Creatinine (0.66-1.25) mg/dL Glucose (74-99) mg/dL POC Glucose (mg/dL) 409 H 322 H 297 H (70-110) mg/dL
[2024-08-03 04:32] LABS: Glucose,Whole Blood 329 mg/dL (70-110)
[2024-08-03 05:56] LABS: Glucose,Whole Blood 255 mg/dL (70-110)
[2024-08-03 06:47] LABS: Glucose,Whole Blood 262 mg/dL (70-110)
[2024-08-03 07:18] LABS: African American GFR (CKD) >90 (>60 ml/min/1.73 sqM); Anion Gap 9 mmol/L; Blood Urea Nitrogen 11 mg/dL (9-20); Calcium 9.2 mg/dL (8.4-10.2); Carbon Dioxide 23 mmol/L (22-30); Chloride 100 mmol/L (98-107); Glucose 281 mg/dL (74-99); Non-African American GFR(CKD) >90 (>60 ml/min/1.73 sqM); Potassium 3.8 mmol/L (3.5-5.1); Sodium 132 mmol/L (137-145)
[2024-08-03 11:28] VITALS: BP 145/84; PULSE 83; RESP 16; TEMP 98.9
[2024-08-03 11:55] LABS: Glucose,Whole Blood 326 mg/dL (70-110)
[2024-08-03 13:55] LABS: Glucose,Whole Blood 445 mg/dL (70-110)
[2024-08-03] MEDS: INSULIN GLARGINE (LANTUS) 100 UNIT/ML SYR SQ STA (14:44)
--- NOTE | 2024-08-03 15:41 | P.DS ---
Providers Date of admission: 07/30/24 20:30 Expected date of discharge: 08/03/24 Attending physician: Byron Blackburn Primary care physician: Stated None Hospital Course: Discharge diagnoses; #DKA #Uncontrolled hyperglycemia #Diabetes mellitus, type II, newly diagnosed #Pseudohyponatremia Hospital course; Patient has 49-year-old male with no known medical history who presents for hyperglycemia. He has no known history of diabetes. He does report a 2-week history of increased thirst, and increased urination. He is felt somewhat fatigued. He felt that his sugar might be high and he bought a glucometer and had had several high readings yesterday, including readings up to 425. He has no other complaints at this time. During hospital stay patient seen for elevated glucose. HbA1c 12.6. Patient started on 18 units Lantus twice daily and 12 units Levemir AC with sliding scale which did not control his blood sugar. He was then switched to 30 units of Lantus twice daily, 12 units Levemir AC with sliding scale. Patient discharged in stable condition to home. He is to begin Lantus 30 units twice daily, Levemir 12 units with each meal and high-dose sliding scale. He will need to continue diabetic diet. He will need to follow-up with PCP to monitor blood sugar and titrate insulin. It was also recommended that he sees endocrinology. PHYSICAL EXAMINATION: Vitals reviewed GENERAL: Resting comfortably in bed. Obese. EYES: PERRL, no scleral injection or icterus. No vision loss HENT: Normocephalic, atraumatic, hearing grossly intact, moist mucous membranes NECK: No tracheal deviation, full range of motion. CARDIOVASCULAR: S1 and S2 present. No murmurs, rubs, or gallops. PULMONARY: Chest is clear to auscultation, no wheezing, rhonchi, or crackles. ABDOMEN: Soft, nontender, nondistended. No palpable organomegaly. MUSCULOSKELETAL: No apparent joint swelling and deformities. EXTREMITIES: No apparent cyanosis, clubbing. No pedal edema. NEUROLOGICAL: Alert and oriented. Gross neurological examination with no apparent focal deficits. SKIN: No apparent rashes. Dr. Roland seen patient with resident, present during exam, and agreed with findings. Dictation was produced using [employer] dictation software. please excuse any grammatical, word or spelling errors. Patient Condition at Discharge: Stable Plan - Discharge Summary Discharge Rx Participant: Yes New Discharge Prescriptions: New RX: INSULIN LISPRO (HumaLOG) [HumaLOG] 0 unit SQ ACHS each RX: INSULIN LISPRO (HumaLOG) [HumaLOG] 12 unit SQ AC-TID 30 Days #1 each Insulin Glargine,Hum.rec.anlog [Lantus Solostar Pen] 30 units SQ BID #7 each Continue RX: Multivitamins, Thera [Multivitamin (formulary)] 1 tab PO DAILY RX: Vitamin D3/Vitamin K2 (Mk4) [Vitamin K2 Plus D3 Tablet] 1 tab PO DAILY Discharge Medication List RX: Multivitamins, Thera [Multivitamin (formulary)] 1 tab PO DAILY 07/31/24 [History] RX: Vitamin D3/Vitamin K2 (Mk4) [Vitamin K2 Plus D3 Tablet] 1 tab PO DAILY 07/31/24 [History] RX: INSULIN LISPRO (HumaLOG) [HumaLOG] 12 unit SQ AC-TID 30 Days #1 each 08/02/24 [Rx] Insulin Glargine,Hum.rec.anlog [Lantus Solostar Pen] 30 units SQ BID #7 each 08/03/24 [Rx] RX: INSULIN LISPRO (HumaLOG) [HumaLOG] 0 unit SQ ACHS each 08/03/24 [Rx] Follow up Appointment(s)/Referral(s): [facility] [NON-STAFF] - 1-2 Days Patient Instructions/Handouts: Type 2 Diabetes in Adults: New Diagnosis (GEN), Meal Planning with Diabetes Exchanges (DC) Activity/Diet/Wound Care/Special Instructions: Continue long-acting Lantus insulin 30 units twice a day, also 12 units of short acting Levemir insulin before each meal, add sliding scale insulin as needed. Do not use 12 units of glucose if not having a meal. Begin diabetic diet. Monitor daily blood glucose, and log blood glucose for primary care physician to make adjustments. Follow-up primary care physician and endocrinology. Discharge/Stand Alone Forms: Diabetes Self-Management, Area PCPs Discharge Disposition: HOME SELF-CARE
== END 2024-08-03 15:38 | disposition home or self-care (01) | DRG 639 ==
LOC: EC 18:40 → 3SCARD 20:30
PROVIDERS: ADMIT Hospitalist; ATTEND Hospitalist
DX: E11.00 Type 2 diabetes mellitus with hyperosmolarity without nonketotic hyperglycemic-hyperosmolar coma (NKHHC) (principal); F17.200 Nicotine dependence, unspecified, uncomplicated; E11.10 Type 2 diabetes mellitus with ketoacidosis without coma; Z79.4 Long term (current) use of insulin
CPT/HCPCS: 36415; 80048; 80051; 80053; 81001; 82009; 82565; 82803; 82947; 83036; 83605; 83735; 84100; 84520; 85025; 96360; 99291